=== PATIENT | male | born 1970 | race Caucasian/White ===

== ENCOUNTER 2021-12-10 08:54 | Outpatient (CLI) | payer OTHER, SELFPAY ==
[2021-12-10 13:53] LABS: Albumin* 4.9 g/dL (3.3-5.0)
[2021-12-10 13:54] LABS: Chloride* 102 mmol/L (96-114); Sodium* 139 mmol/L (135-149)
[2021-12-10 13:56] LABS: Carbon Dioxide* 29 mmol/L (20-32); Cholesterol* 185 mg/dL (90-199); Estimated Glomerular Filt Rate 92 ml/min
[2021-12-10 13:57] LABS: Alanine Aminotransferase* 36 U/L (4-50); Alkaline Phosphatase* 79 U/L (40-150); Aspartate Amino Transferase* 34 U/L (12-35); Blood Urea Nitrogen* 23 mg/dL (5-24); Calcium* 9.7 mg/dL (8.4-10.6); Glucose* 98 mg/dL (60-115); HDL Cholesterol* 41 mg/dL (>=40); LDL Cholesterol Calculated 113 mg/dL (<100); Total Protein* 7.2 g/dL (6.0-8.3); Triglycerides* 156 mg/dL (40-149)
[2021-12-10 14:24] LABS: PSA Screen* 0.37 ng/mL (0.10-4.00)
== END 2021-12-10 08:55 | disposition home or self-care (01) ==
PROVIDERS: PCP Family Medicine; Visit Provider Family Medicine
DX: Z00.00 Encounter for general adult medical examination without abnormal findings (principal); E78.5 Hyperlipidemia, unspecified; K21.9 Gastro-esophageal reflux disease without esophagitis; Z12.5 Encounter for screening for malignant neoplasm of prostate
CPT/HCPCS: 80053; 80061; 84153

== ENCOUNTER 2022-01-03 11:11 | Outpatient (CLI) | payer OTHER, SELFPAY | END 2022-01-03 11:12 | disposition home or self-care (01) | PROVIDERS: PCP Family Medicine; Visit Provider Internal Medicine | DX: K21.9 Gastro-esophageal reflux disease without esophagitis (principal); K63.5 Polyp of colon; Z86.010 Personal history of colon polyps | CPT/HCPCS: 43239; 45380; 88305; 99153; J2250; J3010 ==

== ENCOUNTER 2022-12-04 13:13 | Outpatient (CLI) | payer OTHER, SELFPAY | END 2022-12-04 13:14 | disposition home or self-care (01) | PROVIDERS: PCP Family Medicine; Visit Provider Family Medicine | DX: Z00.00 Encounter for general adult medical examination without abnormal findings (principal); E78.5 Hyperlipidemia, unspecified; R79.89 Other specified abnormal findings of blood chemistry; Z12.5 Encounter for screening for malignant neoplasm of prostate | CPT/HCPCS: 80053; 80061; 84153 ==

== ENCOUNTER 2023-11-06 09:04 | Outpatient (CLI) | payer OTHER, SELFPAY ==
--- OUTSIDE RECORDS SUMMARY | 2023-11-06 09:08 | XMS_ITS | Clinical Summary ---
Author Organization [employer] [facility] [employer] Address [place], [place] [address] Care Team Providers Care Flour Mixer Name Role Phone Papito Chowdhury MD Primary Care Provider [phone] Social History Tobacco Use Types Packs/Day Years Used Date Smoking Tobacco: Never Assessed Sex and Gender Information Value Date Recorded Sex Assigned at Not on file Gender Identity Not on file Sexual Orientation Not on file Plan of Treatment Health Maintenance Due Date Last Done Comments Tdap 01/19/1983 Depression screening for age 12+ 1984 HIV for age 15-65 01/19/1987 BMI (ht and wt on same day) for age 18+ 01/19/1990 Hepatitis C screening for ag e 18-79 01/19/1990 Tetanus booster 1992 Colonoscopy through age 75 01/19/2017 Lipids for age 45-75 01/19/2017 Zoster (shingles) series for age 50+ (1 of 2) 01/19/2022 COVID-19 vaccine series ( season) 2023 Influenza for age 50-64 11/01/2023 Pneumococcal series for age 6-64 Aged Out No longer eligible based on patient's age to complete this topic Care Teams Flour Mixer Relationship Specialty Start Date End Date Papito Chowdhury MD [address] [place] [address] PCP - General Family Practice 12/31/17
--- OUTSIDE RECORDS SUMMARY | 2023-11-06 09:08 | XMS_ITS | Clinical Summary ---
Author Organization [facility] Address [address] [place] [id number] Care Team Providers Care Infrastructure Technician Name Role Phone Unavailable Primary Care Provider Unavailabl e Source Comments You are receiving this document as you are listed as the primary care provider,follow-up provider, or the patient has been referred to you for consultation.This is in compliance with the Medicare and[facility] Incentive [facility],which states Providers who transition their patient to another setting of careor provider of care or refers their patient to another provider of care shouldprovide summary care record for each transition of care or referral. [facility] Allerg[facility] No known active allergies Medications Medication Sig Dispensed Refills Start Date End Date Status mometasone (AKA NASONEX) 50 MCG/ACT nasal solution Take 2 sprays as instructed 2 times daily. 02/04/2011 Active rosuvastatin (CRESTOR) 5 MG tablet Take 1 Tablet (5 mg) by mouth daily. 12/05/2022 Active tiZANidine (ZANAFLEX) 4 MG tablet Take 1 Tablet (4 mg) by mouth two times daily as needed. 12/04/2022 Active Immunizations Name Administration Dates Next Due Chicken Pox - History of Illness 03/01/1977 HepA-HepB ([place], 18+ yrs) 08/28/2011,03/12/19 12,02/04/2011 IPV (Polio) 02/04/2011 Td 02/04/2011 Typhoid (Typhim Vi, IM) 02/04/2011 YF (Yellow Fever) 05/20/2012 Social History Tobacco Use Types Packs/Day Years Used Date Smoking Tobacco: Never Smokeless Tobacco: Never Tobacco Cessation:Counseling Given: Not Answered Sex and Gender Information Value Date Recorded Sex Assigned at Not on file Gender Identity Not on file Sexual Orientation Not on file Last Filed Vital Signs Vital Sign Reading Time Taken Comments Blood Pressure 121/83 02/03/2023 8:10 AM [employer]LLOPH[employer] WRAPPING EXAMINER Pulse 96 02/03/2023 8:10 AM CELLOPHANE WRAPPING EXAMINER Temperature 36.7 ??C (98 ??F) 02/03/2023 8:10 AM CELLOPHANE WRAPPING EXAMINER Respiratory Rate 18 02/03/2023 8:10 AM CELLOPHANE WRAPPING EXAMINER Oxygen Saturation 100% 02/03/2023 8:10 AM CELLOPH[employer] WRAPPING EXAMINER Inhaled Oxygen Concentration - - Weight - - Height - - Body Mass Index - - Plan of Treatment Health Maintenance Due Date Last Done Comments Colon Cancer Screening Plan Due 1972 Hep C Screening (Preventive Services) 1972 PSA Screening Discussion 1972 HIV Screening (Preventive Services) 1988 Adult Preventive Visit 01/19/1990 Cholesterol 01/19/2007 Zoster/Shingles (1 of 2) 01/19/2022 COVID-19 Vaccine (4 - 2022-2 4 season) 2023 03/19/2021, 06/19/2020, 05/29/2020 Influenza (#1) 2023 DTaP/Tdap/Td (2 - Tdap) 12/25/2027 12/25/19 18, 02/04/2011 IPV (Polio) Aged Out 02/04/2011 No longer eligi ble based on patient's age to complete this topic HepA Completed 08/28/2011, 03/12/2011, 02/04/2011 HepB Completed 08/28/2011, 03/12/2011, 02/04/2011 Hib Aged Out No longer eligi ble based on patient's age to complete this topic MCV4 Aged Out No longer eligi ble based on patient's age to complete this topic Pneumococcal Aged Out No longer eligi ble based on patient's age to complete this topic
== END 2023-11-06 09:05 | disposition home or self-care (01) ==
PROVIDERS: PCP Family Medicine; Visit Provider Family Medicine
DX: Z00.00 Encounter for general adult medical examination without abnormal findings (principal); R79.89 Other specified abnormal findings of blood chemistry; E78.5 Hyperlipidemia, unspecified; K20.0 Eosinophilic esophagitis
CPT/HCPCS: 80053; 80061; G0103

== ENCOUNTER 2024-10-11 09:09 | Outpatient (CLI) | payer OTHER, SELFPAY | END 2024-10-11 09:10 | disposition home or self-care (01) | PROVIDERS: PCP Family Medicine; Visit Provider Family Medicine | DX: E78.5 Hyperlipidemia, unspecified (principal); R79.89 Other specified abnormal findings of blood chemistry; Z12.5 Encounter for screening for malignant neoplasm of prostate | CPT/HCPCS: 80053; 80061; 84270; 84402; 84403; 84443; G0103 ==

== ENCOUNTER 2024-12-26 11:39 | Outpatient (CLI) | payer OTHER, SELFPAY | END 2024-12-26 11:40 | disposition home or self-care (01) | LOC: LKVREF 11:39 | PROVIDERS: PCP Family Medicine; Visit Provider Family Medicine | DX: N45.1 Epididymitis (principal) | CPT/HCPCS: 87491; 87591 ==

== ENCOUNTER 2025-01-19 07:03 | Outpatient (CLI) | payer OTHER, SELFPAY ==
--- NOTE | 2025-01-19 07:15 | CRLHL7_ITS ---
For Patients: As a result of the Century Cures Act, medical imaging exams and procedure reports are released immediately into your electronic medical record. You may view this report before your referring provider. If you have questions, please contact your health care provider. INDICATION: Epididymitis COMPARISON: none TECHNIQUE: Hough scale imaging was performed of the scrotum. In addition color Doppler and spectral Doppler analysis was performed of the testes. FINDINGS: The testes demonstrate normal arterial and venous blood flow on color Doppler and spectral Doppler analysis. The testes have uniform echogenicity with no evidence of a suspicious mass or area of inflammation. The right testis measures 3.9 x 2.2 x 3.4 cm in size and the left testis measures 4.2 x 2.4 x 2.8 cm. No hydrocele or varicocele. Small right epididymal head cyst measures 3 millimeters. Slightly increased blood flow to the left epididymis appears to be present. IMPRESSION: Normal testicles. Mild left epididymitis. Dictated by Perfecto Travis MD @ 01/19/2025 5:00:59 PM (Electronically Signed)
== END 2025-01-19 07:04 | disposition home or self-care (01) ==
LOC: US 07:04
PROVIDERS: PCP Family Medicine; Visit Provider Family Medicine
DX: N45.1 Epididymitis (principal)
CPT/HCPCS: 76870; 93976